=== PATIENT | female | born 1970 | race Caucasian/White ===

== ENCOUNTER → 2018-01-16 | Outpatient (CLI) | payer OTHER ==
--- NOTE | 2018-01-16 14:55 | PCVCIMAG ---
EXAM: BILATERAL CAROTID DUPLEX INDICATION: Syncope. Carotid bruit. FINDINGS: Doppler Measurements (centimeters per second): RIGHT: Peak CCA-101, Peak ECA-71, Diastolic ICA-37, Peak ICA-80, ICA/CCA Ratio-0.8. LEFT: Peak CCA-111, Peak ECA-74, Diastolic ICA-24, Peak ICA-82, ICA/CCA Ratio-0.7. RIGHT CAROTID: The carotid bulb has no significant plaque. The proximal internal carotid artery shows no significant stenosis. The common carotid artery shows no significant stenosis. The external carotid artery shows no significant stenosis. LEFT CAROTID: The carotid bulb has no significant plaque. The proximal internal carotid artery shows no significant stenosis. The common carotid artery shows no significant stenosis. The external carotid artery shows no significant stenosis. Antegrade flow in both vertebral arteries. IMPRESSION: No significant stenosis of the right internal carotid artery with no significant plaque. No significant stenosis of the left internal carotid artery with no significant plaque. LOC:[place] [id number]
== END | disposition home or self-care (01) ==
LOC: PCVCIMAG 14:06
PROVIDERS: ATTEND Podiatrist Foot & Ankle Surgery
DX: R09.89 Other specified symptoms and signs involving the circulatory and respiratory systems (principal); R51 Headache; R42 Dizziness and giddiness; R55 Syncope and collapse
CPT/HCPCS: 93880